=== PATIENT | female | born 1985 | race Caucasian/White ===

== ENCOUNTER → 2018-01-25 08:21 | Day surgery (SDC) | payer BC ==
--- NOTE | 2018-01-01 06:53 | HP ---
AMENDED REPORT NOW INCLUDES COSIGNER DESIGNATION - ESIGNED BEFORE ADJUSTMENT PREOPERATIVE HISTORY AND PHYSICAL: DATE OF ADMISSION: 01/25/18 PROVIDER: Kemar Piña MD * (DICTATED BY NISHA LAST) CHIEF COMPLAINT: Right foot pain. HISTORY OF PRESENT ILLNESS: Nelli is a 32-year-old female who was previously followed by Dr. Piña while still in [place] and underwent right foot FDL transfer with calcaneal osteotomy 12 years ago. She has had mild pain in the hindfoot, but this is getting worse over the last year or so. She states that pain is around the medial and lateral hindfoot. She has some orthotics, which were rather rigid and made her pain worse. She points to the heel as the area of her pain. 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 She is interested in possible surgical intervention for correction of the problem. PAST MEDICAL HISTORY: None. PAST SURGICAL HISTORY: Right foot calcaneal osteotomy and FDL transfer, tonsillectomy, adenoidectomy, and a LEEP. She reports no complications of anesthesia with those procedures. CURRENT MEDICATIONS: Vitamin D supplement. ALLERGIES: AUGMENTIN. FAMILY HISTORY: Positive for diabetes and hypertension. SOCIAL HISTORY: She lives with her spouse. 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 She has never smoked. She occasionally consumes alcohol. She exercises regularly. REVIEW OF SYSTEMS: A 14-point review of systems was discussed with the patient at today's visit. Positive for previous DVT after surgery. All other systems were negative. PHYSICAL EXAMINATION GENERAL: She is a well-developed, well-nourished, pleasant female, in no acute distress at rest. She is alert and oriented x3 with appropriate mood and affect. VITAL SIGNS: The patient is 5 feet 4 inches, 127 pounds, blood pressure 126/70 , pulse of 74, respirations 16. HEENT: Normocephalic/atraumatic. Her hearing and vision are grossly intact. NECK: Her trachea is midline. RESPIRATORY: Lungs are clear to auscultation bilaterally. No wheezes, rales, or rhonchi. CARDIOVASCULAR: Regular rate and rhythm. No murmurs, rubs, or gallops. Normal S1, S2. ABDOMEN: Soft, nondistended, nontender. Normal bowel sounds. EXTREMITIES: Exam of the right lower extremity, skin is intact without abrasions or open wounds. She has well-healed surgical scars from her previous surgery. She has a slight planovalgus deformity, but is symmetrical bilaterally. She walks with a normal heel-toe gait. She has 5/5 strength with resisted range of motion. She is limited with inversion and eversion. She has no tenderness to the medial or lateral scar. No Tinel is noted. She has mild tenderness at the heel point of insertion for the heel screw. IMPRESSION: Painful hardware of the right foot. PLAN: The patient is to undergo right foot heel screw removal by Dr. Piña on 01/25/18. The risks, benefits, and postoperative course were discussed with the patient at length and she would like to proceed. All of her questions were answered to her full satisfaction. She is understanding to call should she develop any problems or concerns. NISHA LAST [id number]/[facility] #: [id number] ABIODUN
[~2018-01-25 08:21] MED LIST: Acetaminophen TAB* 325 MG ONE; Acetaminophen TAB* 325 MG PO ONE; Buffered Lidocaine 0.9% SYRIN* 5 ML/SYR SYRINGE INTRADERM ONE; Buffered Lidocaine 0.9% SYRIN* 5 ML/SYR SYRINGE ONE; Bupivacaine 0.5% SDV PF* 10-30ML VIAL ONE; Clindamycin 900 MG IVPREMIX(* 900 MG/50 ML SDV IV ONE; Famotidine IV* 10 MG/ML 2 ML (20 mg) IV ONE; Famotidine IV* 10 MG/ML 2 ML (20 mg) ONE; HYDROmorphone INJ* 1 MG/ML CARPUJECT SYRINGE IV PRN; Ketorolac INJ* 30 MG/ML 1 ML VIAL ONE; Lidocaine 2% PF * 5 ML VIAL ONE; Midazolam* 1 MG/ML 2 ML VIAL (2 MG) ONE; Naloxone* 0.4 MG/ML 1 ML VIAL IV PRN; Ondansetron INJ* 2 MG/ML VIAL IV PRN; Ondansetron INJ* 2 MG/ML VIAL ONE; Propofol* 10 MG/ML 20 ML BTL IV PUSH ONE; Scopolamine 1.5 mg* PATCH TRANSDERM PRN; Scopolamine PATCH Remove* 1 NOTE MISC PATCH OFF ONE; fentaNYL* 50 MCG/ML 2 ML VIAL (100 MCG VIAL) IV PRN; fentaNYL* 50 MCG/ML 2 ML VIAL (100 MCG VIAL) ONE; oxyCODONE TAB* 5 MG TAB ONE; oxyCODONE TAB* 5 MG TAB PO PRN
[2018-01-25] MEDS: oxyCODONE TAB* 5 MG TAB PO PRN ×2 (12:20→12:58)
[2018-01-25 12:50] VITALS: BP 109/66
--- NOTE | 2018-01-26 01:22 | OP ---
DATE OF OPERATION: 01/25/18 - SDS DATE OF : 85 ATTENDING SURGEON: Kemar Piña MD FREIGHT LOADER: Angela Walker PA-C PRE-OP DIAGNOSIS: Painful right heel hardware. POST-OP DIAGNOSIS: Painful right heel hardware. OPERATIVE PROCEDURE: Removal of heel hardware. DESCRIPTION OF PROCEDURE: The patient was taken to the operating room where a longitudinal incision was made down to the heel screw. The screw head was projecting plantar to the cortex. We attempted to remove this with a 7.5 mm hex head screwdriver, but it was too small. Therefore, I, with a 2.4 mm power leonila, removed some cortex from around the head of the screw; and then, using a firm plier, we were able to back out the screw without difficulty. We irrigated thoroughly, closed the subcu tissue with 2-0 Vicryl and 2-0 Prolene for the skin. A compression dressing was applied. [id number]/[facility] #: [id number] ABIODUN
== END | disposition home or self-care (01) ==
LOC: OR 08:21
PROVIDERS: ATTEND Orthopaedic Surgery
DX: T84.84XA Pain due to internal orthopedic prosthetic devices, implants and grafts, initial encounter (principal); Y83.1 Surgical operation with implant of artificial internal device as the cause of abnormal reaction of the patient, or of later complication, without mention of misadventure at the time of the procedure; M79.671 Pain in right foot
CPT/HCPCS: 81025; 88300; A9270-GY; J1885; J2250; J2405; J2704; J3010